=== PATIENT | male | born 1975 | race Caucasian/White ===

== ENCOUNTER 2021-06-05 18:31 | Inpatient (IN) | payer BC ==
[~2021-06-05] VITALS: Ht 180.3 cm; Wt 136.1 kg
[2021-06-05 18:41] VITALS: BP 141/89
[2021-06-05 21:30] LABS: BASO # 0.1 10*3/uL (0.0-0.1); BASO % 0.8 % (0.0-1.0); EOS # 0.2 10*3/uL (0.0-0.4); EOS % 1.9 % (1.0-4.0); HEMATOCRIT 41.7 % (42.0-52.0); LYMPH # 3.4 10*3/uL (1.3-4.4); LYMPH % 33.8 % (27.0-41.0); MEAN CELL VOLUME 92.7 fl (80.0-94.0); MEAN CORPUSCULAR HGB 31.8 pg (27.0-31.0); MEAN CORPUSCULAR HGB CONC 34.3 g/dl (33.0-37.0); MEAN PLATELET VOLUME 8.9 fl (9.6-12.3); MONO # 0.8 10*3/uL (0.1-1.0); MONO % 7.8 % (3.0-9.0); NEUT # 5.6 10*3/uL (2.3-7.9); NEUT % 55.4 % (47.0-73.0); PLATELET COUNT AUTOMATED 216 10*3/uL (130-400); RED CELL DISTRI WIDTH 12.1 % (0-14.5); WHITE BLOOD COUNT 10.1 10*3/uL (4.8-10.8)
[2021-06-05 21:44] LABS: ALBUMIN 4.1 gm/dl (3.1-4.5); ALKALINE PHOSPHATASE 115 U/L (45-117); BUN 21 mg/dl (7-24); CHLORIDE 107 mmol/L (98-107); CREATININE 0.85 mg/dL (0.70-1.30); POTASSIUM 3.8 mmol/L (3.5-5.1); SGOT/AST 20 IU/L (3-35); SGPT/ALT 43 U/L (12-78); SODIUM 140 mmol/L (136-145); TOTAL PROTEIN 7.5 gm/dL (6.4-8.2)
[2021-06-05 23:19] VITALS: BP 141/89
[2021-06-06] VITALS (10 sets, daily range): BP systolic 112–136; BP diastolic 56–88
[2021-06-06 05:59] LABS: BUN 21 mg/dl (7-24); CHLORIDE 109 mmol/L (98-107); CREATININE 0.91 mg/dL (0.70-1.30); POTASSIUM 3.5 mmol/L (3.5-5.1); SODIUM 141 mmol/L (136-145)
[2021-06-06 06:10] LABS: BASO # 0.1 10*3/uL (0.0-0.1); BASO % 0.7 % (0.0-1.0); EOS # 0.2 10*3/uL (0.0-0.4); EOS % 2.6 % (1.0-4.0); HEMATOCRIT 39.8 % (42.0-52.0); LYMPH # 3.4 10*3/uL (1.3-4.4); MEAN CELL VOLUME 93.2 fl (80.0-94.0); MEAN CORPUSCULAR HGB 31.9 pg (27.0-31.0); MEAN CORPUSCULAR HGB CONC 34.2 g/dl (33.0-37.0); MEAN PLATELET VOLUME 9.2 fl (9.6-12.3); MONO # 0.8 10*3/uL (0.1-1.0); MONO % 8.7 % (3.0-9.0); NEUT # 4.4 10*3/uL (2.3-7.9); NEUT % 49.8 % (47.0-73.0); PLATELET COUNT AUTOMATED 202 10*3/uL (130-400); RED BLOOD COUNT 4.27 10*6/uL (4.50-5.90); RED CELL DISTRI WIDTH 12.2 % (0-14.5); WHITE BLOOD COUNT 8.9 10*3/uL (4.8-10.8)
[2021-06-07 06:01] LABS: BUN 15 mg/dl (7-24); CHLORIDE 109 mmol/L (98-107); CREATININE 0.89 mg/dL (0.70-1.30); SODIUM 141 mmol/L (136-145)
[2021-06-07 06:38] LABS: BASO # 0.1 10*3/uL (0.0-0.1); BASO % 0.9 % (0.0-1.0); EOS # 0.2 10*3/uL (0.0-0.4); EOS % 2.1 % (1.0-4.0); LYMPH # 2.7 10*3/uL (1.3-4.4); LYMPH % 30.7 % (27.0-41.0); MEAN CELL VOLUME 93.2 fl (80.0-94.0); MEAN CORPUSCULAR HGB 31.5 pg (27.0-31.0); MEAN CORPUSCULAR HGB CONC 33.8 g/dl (33.0-37.0); MEAN PLATELET VOLUME 9.2 fl (9.6-12.3); MONO # 0.7 10*3/uL (0.1-1.0); MONO % 7.6 % (3.0-9.0); NEUT # 5.2 10*3/uL (2.3-7.9); NEUT % 58.5 % (47.0-73.0); PLATELET COUNT AUTOMATED 209 10*3/uL (130-400); RED BLOOD COUNT 4.29 10*6/uL (4.50-5.90); RED CELL DISTRI WIDTH 12.1 % (0-14.5); WHITE BLOOD COUNT 8.9 10*3/uL (4.8-10.8)
[2021-06-07 08:00] VITALS: BP 109/63
[2021-06-07] MEDS ORDERED: SEPTDS PO (09:33)
[2021-06-07] MEDS ORDERED: COLACE100 MG PO (09:33)
[2021-06-07] MEDS ORDERED: PERCOCET 5-3251 EACH PO (09:33)
== END 2021-06-07 11:10 | disposition home or self-care (01) | DRG 988 ==
LOC: ED 18:31 → 4E 21:53 → EDHOLD 21:53 → 4E 06-06 12:17
PROVIDERS: Internal Medicine; Physician Assistant; ADMIT Student in an Organized Health Care Education/Training Program; ATTEND Student in an Organized Health Care Education/Training Program
PROC: 0H99XZZ Drainage of Perineum Skin, External Approach (ICD-10-PCS; principal; 2021-06-06)
DX: K61.1 Rectal abscess (principal); Z68.41 Body mass index [BMI] 40.0-44.9, adult; E66.01 Morbid (severe) obesity due to excess calories; Z87.19 Personal history of other diseases of the digestive system; F41.9 Anxiety disorder, unspecified; G89.29 Other chronic pain; D64.9 Anemia, unspecified; M54.9 Dorsalgia, unspecified; E87.8 Other disorders of electrolyte and fluid balance, not elsewhere classified; E83.41 Hypermagnesemia; K59.00 Constipation, unspecified; Z82.49 Family history of ischemic heart disease and other diseases of the circulatory system; Z90.49 Acquired absence of other specified parts of digestive tract